=== PATIENT | female | born 1945 | race Caucasian/White ===

== ENCOUNTER 2023-01-06 07:29 | Outpatient (CLI) | payer MEDICARE, BC ==
[2023-01-06] VITALS (17 sets, daily range): BP systolic 128–163; BP diastolic 66–90
== END 2023-01-06 23:59 | disposition home or self-care (01) ==
LOC: CARD DIAG 07:29
PROVIDERS: ATTEND Internal Medicine Interventional Cardiology
DX: R55 Syncope and collapse (principal)
CPT/HCPCS: 93660

== ENCOUNTER 2024-07-25 11:16 | Day surgery (SDC) | payer MEDICARE, BC ==
[2024-07-22 12:59] LABS: BASOPHILS % (AUTO) 0.6 % (0-1); EOSINOPHILS # (AUTO) 0.2 X10'3 (0-0.9); HEMATOCRIT 42.7 % (35.0-45.0); HEMOGLOBIN 14.4 g/dl (12.0-16.0); LYMPHOCYTES # (AUTO) 2.2 X10'3 (1.1-4.8); LYMPHOCYTES % (AUTO) 29.5 % (21-51); MEAN CORPUSCULAR HEMOGLOBIN 35.3 PG (27.0-31.0); MEAN CORPUSCULAR HGB CONC 33.7 g/dL (33.0-36.5); MEAN CORPUSCULAR VOLUME 104.8 FL (78-98); MEAN PLATELET VOLUME 8.2 FL (7.4-10.4); MONOCYTES # (AUTO) 0.6 X10'3 (0-0.9); MONOCYTES % (AUTO) 7.8 % (2-12); NEUTROPHILS # (AUTO) 4.4 X10'3 (1.8-7.7); NEUTROPHILS % (AUTO) 60.1 % (42-75); PLATELET COUNT 230 X10'3 (140-440); RED BLOOD COUNT 4.08 X10'6 (4.20-5.60); RED CELL DISTRIBUTION WIDTH 12.8 % (11.5-14.5); WHITE BLOOD COUNT 7.4 X10'3 (4.5-11.0)
[2024-07-22 13:13] LABS: APTT 26 SECONDS (22-32); PROTHROMBIN TIME 10.7 SECONDS (9.0-12.0)
[2024-07-22 13:14] LABS: ALBUMIN 4.1 G/DL (3.4-5.0); ANION GAP 7 (8-16); BLOOD UREA NITROGEN 11 MG/DL (7-18); BUN/CREATININE RATIO 14.9 (10.0-20.0); CALCIUM 8.6 MG/DL (8.5-10.1); CHLORIDE 98 MMOL/L (99-107); CHOL/HDL RATIO 3.2 (0.00-4.99); CHOLESTEROL 269 MG/DL (0-200); CREATININE 0.74 MG/DL (0.40-0.90); GLUCOSE 96 MG/DL (70-104); HDL CHOLESTEROL 83 MG/DL (35-60); LDL CHOLESTEROL 140 MG/DL (50-100); POTASSIUM 3.5 MMOL/L (3.5-5.1); SODIUM 133 MMOL/L (135-145); TOTAL CARBON DIOXIDE 27.7 MMOL/L (24-32); TRIGLYCERIDES 223 MG/DL (20-135); eGFR 76 ML/MIN
[2024-07-25] VITALS (9 sets, daily range): BP systolic 120–152; BP diastolic 49–81; PULSE 80–92; RESP 10–12; TEMP 98.3; O2SAT 90–99
[~2024-07-25] VITALS: Ht 157.5 cm; Wt 60.5 kg
[2024-07-25] MEDS ORDERED: CLON-369 (13:02)
[2024-07-25] MEDS ORDERED: ESCI10TA PO (13:02)
[2024-07-25] MEDS ORDERED: LOSA50TA64 PO (13:02)
[2024-07-25] MEDS ORDERED: CHOL500050 PO (13:02)
[2024-07-25] MEDS ORDERED: ATOR40TA72 PO (13:02)
[2024-07-25] MEDS ORDERED: CYAN-34 PO (13:03)
[2024-07-25] MEDS ORDERED: DENO60DI SUBCUT (13:03)
[2024-07-25] MEDS: LORazepam 0.5 MG tablet PO PRN (13:09)
[2024-07-25] MEDS: normal saline 1,000 ML IV SCH (13:09)
[2024-07-25] MEDS: diphenhydrAMINE 25mg capsule PO PRN (13:09)
[2024-07-25] MEDS ORDERED: heparin 1,000unit/ml 10ml vial 10 ML ONE (14:21)
[2024-07-25] MEDS ORDERED: LIDOcaine 1% (10mg/ml) 2ml vial ONE (14:21)
[2024-07-25] MEDS ORDERED: fentaNYL/PF 50MCG/1 ML 2ML syringe ONE (14:21)
[2024-07-25] MEDS ORDERED: midazolam 1 mg/ML 2ml injection ONE (14:21)
[2024-07-25] MEDS ORDERED: verapamil 2.5 mg/ml inj IV ONE (14:21)
[2024-07-25] MEDS ORDERED: iohexol 350MG/ML 100ml bottle IV ONE (14:22)
[2024-07-25] MEDS ORDERED: nitroGLYCERIN 500mcg/5mL D5W 5 ML IV ONE (14:29)
[2024-07-25] MEDS ORDERED: LIDOcaine 1% 30ml preserv. free vial ONE (15:15)
[2024-07-25 15:40] LABS: ISTAT HGB MIX 12.2 g/dl (12.0-16.0); ISTAT Hct MIX 36 %PCV (35-45); ISTAT O2 SATURATION MIX VENOUS 70 % (60-80); ISTAT SOURCE BLNK
[2024-07-25] MEDS ORDERED: HYDROcodone/acetaminophen 5mg/325mg tablet PO PRN (15:55)
[2024-07-25] MEDS ORDERED: HYDROcodone/acetaminophen 10/325mg tab PO PRN (15:55)
[2024-07-26 09:37] LABS: ISTAT HGB ART 11.9 g/dl (12.0-16.0); ISTAT Hct ART 35 %PCV (35-45); ISTAT O2 SATURATION ARTERIAL 95 % (95-98); ISTAT SOURCE BLNK
== END 2024-07-25 19:00 | disposition home or self-care (01) ==
LOC: SSTAY O 11:16
PROVIDERS: ATTEND Internal Medicine Interventional Cardiology
DX: I35.0 Nonrheumatic aortic (valve) stenosis (principal); I25.10 Atherosclerotic heart disease of native coronary artery without angina pectoris; I10 Essential (primary) hypertension; E78.00 Pure hypercholesterolemia, unspecified; Z79.82 Long term (current) use of aspirin; Z79.899 Other long term (current) drug therapy; Z95.0 Presence of cardiac pacemaker
CPT/HCPCS: 36415; 80048; 80061; 82803; 85014; 85025; 85610; 85730; 93005; 93456; 99152; A6258; A6402; C1751; C1760; C1769; C1894; J1644; J2003; J2250; J3010; J3490; J7030; Q0163; Q9967; Z7610; 99153; A6449

== ENCOUNTER 2024-08-09 10:46 | Outpatient (CLI) | payer MEDICARE, BC ==
[~2024-08-09 10:46] MED LIST: ATOR40TA72 PO; CHOL500050 PO; CLON-369; CYAN-34 PO; DENO60DI SUBCUT; ESCI10TA PO; IODIXANOL 320 MG/ML INFUS..BTL 100ML IV ONE; LOSA50TA64 PO
[2024-08-09 11:53] LABS: BASOPHILS % (AUTO) 0.6 % (0-1); EOSINOPHILS # (AUTO) 0.1 X10'3 (0-0.9); EOSINOPHILS % (AUTO) 2.1 % (0-6); HEMOGLOBIN 13.9 g/dl (12.0-16.0); LYMPHOCYTES # (AUTO) 1.6 X10'3 (1.1-4.8); LYMPHOCYTES % (AUTO) 25.5 % (21-51); MEAN CORPUSCULAR HEMOGLOBIN 34.9 PG (27.0-31.0); MEAN CORPUSCULAR HGB CONC 33.1 g/dL (33.0-36.5); MEAN CORPUSCULAR VOLUME 105.5 FL (78-98); MEAN PLATELET VOLUME 8.1 FL (7.4-10.4); MONOCYTES # (AUTO) 0.5 X10'3 (0-0.9); MONOCYTES % (AUTO) 7.5 % (2-12); NEUTROPHILS % (AUTO) 64.3 % (42-75); PLATELET COUNT 195 X10'3 (140-440); RED BLOOD COUNT 3.98 X10'6 (4.20-5.60); RED CELL DISTRIBUTION WIDTH 12.8 % (11.5-14.5); WHITE BLOOD COUNT 6.2 X10'3 (4.5-11.0)
[2024-08-09 11:55] LABS: APTT 26 SECONDS (22-32); PROTHROMBIN TIME 10.9 SECONDS (9.0-12.0)
[2024-08-09 12:03] LABS: ALANINE AMINOTRANSFERASE 17 U/L (12-78); ALKALINE PHOSPHATASE 89 IU/L (46-116); ANION GAP 9 (8-16); ASPARTATE AMINO TRANSFERASE 24 U/L (10-37); BILIRUBIN,TOTAL 0.6 MG/DL (0.1-1.0); BLOOD UREA NITROGEN 13 MG/DL (7-18); CHLORIDE 103 MMOL/L (99-107); GLUCOSE 79 MG/DL (70-104); POTASSIUM 3.9 MMOL/L (3.5-5.1); PRO BRAIN NATRIURETIC PEPTIDE 89 PG/ML (0-450); SODIUM 137 MMOL/L (135-145); TOTAL CARBON DIOXIDE 24.6 MMOL/L (24-32); TOTAL PROTEIN 7.9 G/DL (6.4-8.2)
[2024-08-09 12:16] LABS: BUN/CREATININE RATIO 16.7 (10.0-20.0); CALCIUM 8.7 MG/DL (8.5-10.1); CREATININE 0.78 MG/DL (0.40-0.90); eGFR 72 ML/MIN
== END 2024-08-09 23:59 | disposition home or self-care (01) ==
LOC: RAD 10:46
PROVIDERS: ATTEND Internal Medicine Cardiovascular Disease
DX: I70.0 Atherosclerosis of aorta (principal); I35.0 Nonrheumatic aortic (valve) stenosis; R06.02 Shortness of breath; I65.29 Occlusion and stenosis of unspecified carotid artery; I70.8 Atherosclerosis of other arteries
CPT/HCPCS: 36415; 71046; 71275; 74174; 75572; 80053; 83880; 85025; 85610; 85730; Q9967